=== PATIENT | female | born 1950 | race Caucasian/White ===

== ENCOUNTER → 2016-11-30 | Outpatient (CLI) | payer MEDICARE, OTHER ==
[2016-11-30 09:14] LABS: CH 28.9; CHCM 31.8; HCT 41.5 % (34.0-46.0); HDW 2.12; HGB 13.3 gm/dL (11.4-16.0); MCH 29.3 pg (25.0-35.0); MCHC 32.1 g/dL (31.0-37.0); MCV 91.4 fL (80.0-100.0); Mean Platelet Volume 6.7; RBC 4.54 m/uL (3.80-5.40); RDW 13.3 % (11.5-15.5); WBC 3.8 k/uL (3.8-10.6)
[2016-11-30 09:33] LABS: ALT 23 U/L (9-52); AST 19 U/L (14-36); Alkaline Phosphatase 65 U/L (38-126); Anion Gap 13 mmol/L; Blood Urea Nitrogen 14 mg/dL (7-17); Calcium 10.1 mg/dL (8.4-10.2); Carbon Dioxide 24 mmol/L (22-30); Chloride 106 mmol/L (98-107); Cholesterol 278 mg/dL (<200); Glucose 89 mg/dL (74-99); HDL Cholesterol 89 mg/dL (40-60); Non-African American GFR(MDRD) >60 (>60 ml/min/1.73 sqM); Potassium 5.5 mmol/L (3.5-5.1); Sodium 143 mmol/L (137-145); Total Bilirubin 0.8 mg/dL (0.2-1.3); Total Protein 7.6 g/dL (6.3-8.2); Triglycerides 67 mg/dL (<150)
[2016-11-30 10:09] LABS: Appearance,Urine Cloudy (Clear); Bacteria,Urine Few /hpf; Bilirubin,Urine Negative (Negative); Glucose,Urine (UA) Negative (Negative); Ketones,Urine Trace (Negative); Leukocyte Esterase,Urine Large (Negative); Mucus,Urine Occasional /hpf; Nitrite,Urine Negative (Negative); PH, Urine 5.5 (5.0-8.0); Particle Count 12738; Protein,Urine Trace (Negative); RBC,Urine 16 /hpf (0-5); Specific Gravity,Urine 1.013 (1.001-1.035); Squamous Epithelial Cell,Urine 4 /hpf (0-4); UA Billing (MACRO vs. MICRO) MICRO; Urobilinogen,Urine <2.0 mg/dL (<2.0); WBC,Urine >182 /hpf (0-5)
== END ==
LOC: LABWHC1 08:34
PROVIDERS: ATTEND Internal Medicine
DX: E78.5 Hyperlipidemia, unspecified (principal); E55.9 Vitamin D deficiency, unspecified; K57.30 Diverticulosis of large intestine without perforation or abscess without bleeding
CPT/HCPCS: 36415; 80053; 80061; 81001; 82306; 84443; 85027

== ENCOUNTER → 2017-01-20 | Outpatient (CLI) | payer MEDICARE, OTHER ==
--- NOTE | 2017-01-20 20:28 | BD ---
EXAMINATION TYPE: MG DEXA axial skeleton. DATE OF EXAM: 01/20/2017 1:02 PM COMPARISON: NONE CLINICAL HISTORY: 66-year-old female postmenopausal screening Height: 62 Weight: 176.3 FRAX RISK QUESTIONS: Alcohol (3 or more units per day): NO Family History (Parent hip fracture): YES - MOTHER Glucocorticoids (More than 3mos): NO (Ex: prednisone, prednisolone, methylprednisolone, dexamethasone, and hydrocortisone). History of Fracture in Adulthood: YES Secondary Osteoporosis: 1. Type 1 Diabetes: NO 2. Hyperthyroidism: NO 3. Menopause before 45: 4. Malnutrition: NO 5. Chronic liver disease: NO Rheumatoid Arthritis: NO Current Tobacco Use: NO RISK FACTORS HISTORY OF: Hip Fracture (Right/Left): NO Spine Fracture: NO History of Wrist Fracture: NO Surgery to Spine/Hip(right/left)/Wrist (right/left): NO Family History of Osteoporosis: NO Active: YES Diet low in dairy products/other sources of calcium: YES Postmenopausal woman: 2002 Take estrogen and/or progesterone medications: YES Lost more than 2 inches in height since high school: YES Frequent falls: NO Poor Health: NO Adrenal Insufficiency: NO MEDICATIONS: VAGIFEM, FLUOXITINE Additional History: EXAM MEASUREMENTS: Bone mineral densitometry was performed using the [employer] System. Bone mineral density as measured about the Lumbar spine is: ----- L1-L4(G/cm2): 1.405 T Score Values are as follows: ----- L2: 3.5 ----- L3: 1.1 ----- L4: 1.1 ----- L1-L4: 1.9 Bone mineral density has: INCREASED 11.6 % since study of: 04.29.2009 Bone mineral density about the R hip (g/cm2): 0.869 Bone mineral density about the L hip (g/cm2): 0.786 T Score values are as follows: -----R Neck: -1.2 -----L Neck: -1.8 -----R Intertrochanter: -0.5 -----L Intertrochanter: -1.5 Bone mineral density has: DECREASED -7.1 % since study of: 04.29.2009 IMPRESSION: Osteopenia (T Score between -2.5 and -1) as noted by T score values in the hips. There is slightly increased risk of fracture and the patient may be considered for treatment. Re-Screen 2-5 years. NOTE: T-SCORE=SD OF THE YOUNG ADULT MEAN.
--- NOTE | 2017-01-24 09:47 | MM ---
Reason for exam: screening (asymptomatic). Last mammogram was performed 1 year and 2 months ago. History: Patient is postmenopausal. Took hormonal contraceptives for 1 year. Took estrogen for 2 years beginning at age 51. Taking progesterone beginning at age 64. Physical Findings: A clinical breast exam by your physician is recommended on an annual basis and results should be correlated with mammographic findings. MG 3D Screening Mammo W/Cad Bilateral CC and MLO view(s) were taken. Prior study comparison: November 28, 2015, bilateral MG 3d screening mammo w/cad. November 19, 2014, bilateral MG screening mammo w CAD. The breast tissue is heterogeneously dense. This may lower the sensitivity of mammography. There is chronic nodularity in the left breast. There is no dominant lesion. No significant changes when compared with prior studies. ASSESSMENT: Benign, BI-RAD 2 RECOMMENDATION: Routine screening mammogram of both breasts in 1 year.
== END | disposition home or self-care (01) ==
LOC: RADBDWWP 12:59
PROVIDERS: ATTEND Obstetrics & Gynecology
DX: Z12.31 Encounter for screening mammogram for malignant neoplasm of breast (principal); M85.851 Other specified disorders of bone density and structure, right thigh; M85.852 Other specified disorders of bone density and structure, left thigh; Z88.1 Allergy status to other antibiotic agents; Z88.0 Allergy status to penicillin; Z78.0 Asymptomatic menopausal state
CPT/HCPCS: 77080; 77063; G0202

== ENCOUNTER → 2017-08-03 | Outpatient (CLI) | payer MEDICARE, OTHER ==
[2017-08-03 08:11] LABS: ALT 36 U/L (9-52); AST 19 U/L (14-36); Alkaline Phosphatase 63 U/L (38-126); Anion Gap 8 mmol/L; Blood Urea Nitrogen 15 mg/dL (7-17); Calcium 9.4 mg/dL (8.4-10.2); Carbon Dioxide 26 mmol/L (22-30); Chloride 108 mmol/L (98-107); Cholesterol 232 mg/dL (<200); Glucose 82 mg/dL (74-99); HDL Cholesterol 80 mg/dL (40-60); Non-African American GFR(MDRD) >60 (>60 ml/min/1.73 sqM); Potassium 4.7 mmol/L (3.5-5.1); Sodium 142 mmol/L (137-145); Total Bilirubin 0.4 mg/dL (0.2-1.3)
== END | disposition home or self-care (01) ==
LOC: LABWHC1 07:21
PROVIDERS: ATTEND Internal Medicine
DX: E78.5 Hyperlipidemia, unspecified (principal)
CPT/HCPCS: 36415; 80053; 80061

== ENCOUNTER → 2017-12-20 | Outpatient (CLI) | payer MEDICARE ==
[2017-12-20 08:20] LABS: HCT 40.1 % (34.0-46.0); HGB 12.5 gm/dL (11.4-16.0); MCH 27.3 pg (25.0-35.0); MCHC 31.1 g/dL (31.0-37.0); MCV 87.7 fL (80.0-100.0); Mean Platelet Volume 7.6; Platelet Count 330 k/uL (150-450); RBC 4.57 m/uL (3.80-5.40); RDW 12.9 % (11.5-15.5); WBC 4.2 k/uL (3.8-10.6)
[2017-12-20 08:24] LABS: Appearance,Urine Cloudy (Clear); Bacteria,Urine Few /hpf; Bilirubin,Urine Negative (Negative); Blood,Urine Negative (Negative); Color,Urine Light Yellow; Glucose,Urine (UA) Negative (Negative); Ketones,Urine Negative (Negative); Leukocyte Esterase,Urine Large (Negative); Nitrite,Urine Negative (Negative); Protein,Urine Negative (Negative); RBC,Urine 6 /hpf (0-5); Squamous Epithelial Cell,Urine 7 /hpf (0-4); Urobilinogen,Urine <2.0 mg/dL (<2.0); WBC,Urine 117 /hpf (0-5)
[2017-12-20 08:35] LABS: ALT 29 U/L (9-52); AST 19 U/L (14-36); Albumin 4.4 g/dL (3.5-5.0); Alkaline Phosphatase 64 U/L (38-126); Anion Gap 13 mmol/L; Blood Urea Nitrogen 21 mg/dL (7-17); Calcium 9.9 mg/dL (8.4-10.2); Carbon Dioxide 26 mmol/L (22-30); Chloride 104 mmol/L (98-107); Cholesterol 222 mg/dL (<200); Glucose 88 mg/dL (74-99); HDL Cholesterol 67 mg/dL (40-60); LDL Cholesterol,Calculated 138 mg/dL (0-99); Sodium 143 mmol/L (137-145); Total Bilirubin 0.3 mg/dL (0.2-1.3); Triglycerides 87 mg/dL (<150)
== END | disposition home or self-care (01) ==
LOC: LABWHC1 07:38
PROVIDERS: ATTEND Internal Medicine
DX: Z00.00 Encounter for general adult medical examination without abnormal findings (principal); E78.5 Hyperlipidemia, unspecified
CPT/HCPCS: 36415; 80053; 80061; 81001; 84443; 85027

== ENCOUNTER → 2018-04-06 | Outpatient (CLI) | payer MEDICARE ==
--- NOTE | 2018-04-07 11:06 | MM ---
Reason for exam: screening (asymptomatic). Last mammogram was performed 1 year and 2 months ago. History: Patient is postmenopausal. Took hormonal contraceptives for 1 year. Took estrogen for 2 years beginning at age 51. Taking progesterone beginning at age 64. Physical Findings: A clinical breast exam by your physician is recommended on an annual basis and results should be correlated with mammographic findings. MG 3D Screening Mammo W/Cad Bilateral CC and MLO view(s) were taken. Prior study comparison: January 20, 2017, bilateral MG 3d screening mammo w/cad. November 28, 2015, bilateral MG 3d screening mammo w/cad. The breast tissue is heterogeneously dense. This may lower the sensitivity of mammography. There is chronic nodularity bilaterally. No significant changes when compared with prior studies. ASSESSMENT: Benign, BI-RAD 2 RECOMMENDATION: Routine screening mammogram of both breasts in 1 year.
== END | disposition home or self-care (01) ==
LOC: RADMAMWWP 08:19
PROVIDERS: ATTEND Obstetrics & Gynecology
DX: Z12.31 Encounter for screening mammogram for malignant neoplasm of breast (principal)
CPT/HCPCS: 77063; 77067

== ENCOUNTER → 2019-03-30 | Outpatient (CLI) | payer MEDICARE ==
[2019-03-30 07:41] LABS: HCT 39.7 % (34.0-46.0); HGB 12.3 gm/dL (11.4-16.0); MCHC 30.9 g/dL (31.0-37.0); MCV 90.7 fL (80.0-100.0); Mean Platelet Volume 7.4; Platelet Count 375 k/uL (150-450); RBC 4.38 m/uL (3.80-5.40); WBC 4.6 k/uL (3.8-10.6)
[2019-03-30 10:50] LABS: African American GFR (CKD) 103.2 (60.0-200.0); Albumin 4.6 g/dL (3.80-4.90); Albumin/Globulin Ratio 2.3 (1.60-3.17); Anion Gap 6.9 mmol/L (4.00-12.00); BUN/Creat Ratio 25.71 Ratio (12.00-20.00); Calcium 9.5 mg/dL (8.7-10.3); Carbon Dioxide 27.1 mmol/L (21.6-31.8); LDL Cholesterol,Calculated 151.6 mg/dL (0.0-131.0); Total Bilirubin 0.6 mg/dL (0.2-1.2); Total Protein 6.6 g/dL (6.2-8.2); VLDL Calculation 12.4 mg/dL (5.00-40.00)
== END | disposition home or self-care (01) ==
LOC: LABWHC1 07:04
PROVIDERS: ATTEND Internal Medicine
DX: E55.9 Vitamin D deficiency, unspecified (principal); K57.30 Diverticulosis of large intestine without perforation or abscess without bleeding; E78.5 Hyperlipidemia, unspecified
CPT/HCPCS: 36415; 80053; 80061; 82306; 84443; 85027

== ENCOUNTER → 2019-05-14 | Outpatient (CLI) | payer MEDICARE ==
--- NOTE | 2019-05-16 09:56 | MM ---
Reason for exam: screening (asymptomatic). Last mammogram was performed 1 year and 1 month ago. History: Patient is postmenopausal. Took hormonal contraceptives for 1 year. Took estrogen for 2 years beginning at age 51. Took progesterone beginning at age 64. Physical Findings: A clinical breast exam by your physician is recommended on an annual basis and results should be correlated with mammographic findings. MG 3D Screening Mammo W/Cad Bilateral CC and MLO view(s) were taken. Prior study comparison: April 06, 2018, bilateral MG 3d screening mammo w/cad. January 20, 2017, bilateral MG 3d screening mammo w/cad. Asymmetric nodular density upper outer left breast 6.6cm from nipple. This finding is changed when compared with previous exams. ASSESSMENT: Incomplete: need additional imaging evaluation, BI-RAD 0 RECOMMENDATION: Special view mammogram and ultrasound of the left breast. [facility] will attempt to contact patient to return for supplemental views and ultrasound.
== END | disposition home or self-care (01) ==
LOC: RADMAMWWP 07:25
PROVIDERS: ATTEND Obstetrics & Gynecology
DX: Z12.31 Encounter for screening mammogram for malignant neoplasm of breast (principal)
CPT/HCPCS: 77063; 77067

== ENCOUNTER → 2019-05-17 | Outpatient (CLI) | payer MEDICARE ==
--- NOTE | 2019-05-18 08:50 | MM ---
Reason for exam: additional evaluation requested from abnormal screening. Last mammogram was performed less than 1 month ago. History: Patient is postmenopausal. Took hormonal contraceptives for 1 year. Took estrogen for 2 years beginning at age 51. Took progesterone beginning at age 64. Physical Findings: Nurse did not find any significant physical abnormalities on exam. MG 3D Work Up W/Cad LT Spot compression CC, spot compression MLO, and LM view(s) were taken of the left breast. Prior study comparison: May 14, 2019, bilateral MG 3d screening mammo w/cad. April 06, 2018, bilateral MG 3d screening mammo w/cad. There are scattered fibroglandular densities. There is no discrete abnormality on compression. These results were verbally communicated with the patient and result sheet given to the patient on 05/17/19. ASSESSMENT: Probably benign, BI-RAD 3 RECOMMENDATION: Follow-up diagnostic mammogram of the left breast in 6 months.
--- NOTE | 2019-05-18 08:52 | USB ---
History: Patient is postmenopausal. Took hormonal contraceptives for 1 year. Took estrogen for 2 years beginning at age 51. Took progesterone beginning at age 64. US Breast Workup Limited LT Left limited breast ultrasound including focal area of concern, retroareolar and axilla demonstrates no cystic or solid lesion seen. These results were verbally communicated with the patient and result sheet given to the patient on 05/17/19. ASSESSMENT: Negative, BI-RAD 1 RECOMMENDATION: Follow-up diagnostic mammogram of the left breast in 6 months.
== END | disposition home or self-care (01) ==
LOC: RADMAMWWP 08:08
PROVIDERS: ATTEND Obstetrics & Gynecology
DX: R92.8 Other abnormal and inconclusive findings on diagnostic imaging of breast (principal)
CPT/HCPCS: 77065; 76642; G0279; 77061

== ENCOUNTER → 2019-12-13 | Outpatient (CLI) | payer MEDICARE ==
--- NOTE | 2019-12-13 08:16 | MM ---
Reason for exam: follow-up at short interval from prior study. Last mammogram was performed 7 months ago. History: Patient is postmenopausal. Took hormonal contraceptives for 1 year. Took estrogen for 2 years beginning at age 51. Took progesterone beginning at age 64. Physical Findings: Nurse did not find any significant physical abnormalities on exam. MG 3D Diag Mammo W/Cad LT CC and MLO view(s) were taken of the left breast. Prior study comparison: May 17, 2019, left breast MG 3d work up w/cad LT. May 14, 2019, bilateral MG 3d screening mammo w/cad. The breast tissue is heterogeneously dense. This may lower the sensitivity of mammography. There are benign appearing round calcifications in the left breast. Asymmetric breast tissue left upper breast, stable. There is no discrete abnormality. These results were verbally communicated with the patient and result sheet given to the patient on 12/13/19. ASSESSMENT: Benign, BI-RAD 2 RECOMMENDATION: Return to routine screening mammogram schedule for both breasts. Back on schedule.
== END | disposition home or self-care (01) ==
LOC: RADMAMWWP 07:22
PROVIDERS: ATTEND Obstetrics & Gynecology
DX: R92.8 Other abnormal and inconclusive findings on diagnostic imaging of breast (principal)
CPT/HCPCS: 77061; 77065

== ENCOUNTER → 2020-04-21 | Outpatient (CLI) | payer MEDICARE ==
[2020-04-21 07:40] LABS: HCT 38.8 % (34.0-46.0); HGB 12.3 gm/dL (11.4-16.0); MCH 28.4 pg (25.0-35.0); MCHC 31.7 g/dL (31.0-37.0); MCV 89.4 fL (80.0-100.0); Mean Platelet Volume 7.1; Platelet Count 325 k/uL (150-450); RBC 4.34 m/uL (3.80-5.40); RDW 13.5 % (11.5-15.5); WBC 4.8 k/uL (3.8-10.6)
[2020-04-21 11:36] LABS: Appearance,Urine Turbid (Clear); Bilirubin,Urine Negative (Negative); Blood,Urine Small (Negative); Color,Urine Yellow; Glucose,Urine (UA) Negative (Negative); Ketones,Urine Negative (Negative); Leukocyte Esterase,Urine Large (Negative); Mucus,Urine Occasional /hpf; Nitrite,Urine Negative (Negative); PH, Urine 5.5 (5.0-8.0); Protein,Urine Trace (Negative); RBC,Urine 13 /hpf (0-5); Specific Gravity,Urine 1.024 (1.001-1.035); Squamous Epithelial Cell,Urine 8 /hpf (0-4); Urobilinogen,Urine <2.0 mg/dL (<2.0); WBC,Urine >182 /hpf (0-5)
[2020-04-21 12:31] LABS: African American GFR (CKD) 86.6 (60.0-200.0); Albumin 4.4 g/dL (3.80-4.90); Anion Gap 9.6 mmol/L (4.00-12.00); BUN/Creat Ratio 27.5 Ratio (12.00-20.00); Calcium 9.6 mg/dL (8.7-10.3); Carbon Dioxide 22.4 mmol/L (21.6-31.8); Chol/HDL Ratio 3.12; Globulin 2.2 g/dL (1.6-3.3); LDL Cholesterol,Calculated 149.2 mg/dL (0.0-131.0); Non-African American GFR(CKD) 74.7 (60.0-200.0); Potassium 4.2 mmol/L (3.5-5.5); Total Bilirubin 0.5 mg/dL (0.3-1.2); Total Protein 6.6 g/dL (6.2-8.2); VLDL Calculation 13.8 mg/dL (5.00-40.00)
== END ==
LOC: LABWHC1 06:48
PROVIDERS: ATTEND Internal Medicine
DX: Z00.00 Encounter for general adult medical examination without abnormal findings (principal); E78.5 Hyperlipidemia, unspecified
CPT/HCPCS: 36415; 80053; 80061; 81001; 84443; 85027

== ENCOUNTER → 2020-09-29 | Outpatient (CLI) | payer MEDICARE ==
--- NOTE | 2020-09-29 13:22 | BD ---
EXAMINATION TYPE: Axial Bone Density DATE OF EXAM: 09/29/2020 COMPARISON: 01/20/2017 CLINICAL HISTORY: 70-year-old female postmenopausal screening Height: 5 FT 2 IN Weight: 178 FRAX RISK QUESTIONS: Alcohol (3 or more units per day): NO Family History (Parent hip fracture): YES Glucocorticoids (More than 3mos): NO (Ex: prednisone, prednisolone, methylprednisolone, dexamethasone, and hydrocortisone). History of Fracture in Adulthood: YES Secondary Osteoporosis: 1. Type 1 Diabetes: NO 2. Hyperthyroidism: NO 3. Menopause before 45: NO 4. Malnutrition: NO 5. Chronic liver disease: NO Rheumatoid Arthritis: UNSURE Current Tobacco Use: NO RISK FACTORS HISTORY OF: Family History of Osteoporosis: NO Active: MODERATE Diet low in dairy products/other sources of calcium: NO Postmenopausal woman: TOTAL HYST AGE 51 Take estrogen and/or progesterone medications: TOOK HRT 1 YEAR AFTER HYST USING VAGINAL CREAM NOW Lost more than 2 inches in height since high school: YES MEDICATIONS: Additional Medications: VAGIFEM, STATIN ,PROZAC Additional History: EXAM MEASUREMENTS: Bone mineral densitometry was performed using the [employer] System. Bone mineral density as measured about the Lumbar spine is: ----- L1-L4(G/cm2): 1.197 T Score Values are as follows: ----- L2: 0.7 ----- L3: -0.3 ----- L4: 0.9 ----- L1-L4: 0.1 Bone mineral density has: DECREASED -12.0 % since study of: 2016 Bone mineral density about the R hip (g/cm2): 0.843 Bone mineral density about the L hip (g/cm2): 0.787 T Score values are as follows: -----R Neck: -1.4 -----L Neck: -1.8 -----R Total: -0.7 -----L Total: -1.3 Bone mineral density has: DECREASED -4.4 % since study of: 2016 IMPRESSION: Osteopenia (T Score between -2.5 and -1). There is slightly increased risk of fracture and the patient may be considered for treatment. Re-Screen 2-5 years. NOTE: T-SCORE=SD OF THE YOUNG ADULT MEAN.
--- NOTE | 2020-10-01 14:44 | MM ---
Reason for exam: screening (asymptomatic). Last mammogram was performed 10 months ago. History: Patient is postmenopausal. Took hormonal contraceptives for 1 year. Took estrogen for 2 years beginning at age 51. Took progesterone beginning at age 64. Physical Findings: A clinical breast exam by your physician is recommended on an annual basis and results should be correlated with mammographic findings. MG 3D Screening Mammo W/Cad Bilateral CC and MLO view(s) were taken. Prior study comparison: December 13, 2019, left breast MG 3d diag mammo w/cad LT. May 17, 2019, left breast MG 3d work up w/cad LT. April 06, 2018, bilateral MG 3d screening mammo w/cad. January 20, 2017, bilateral MG 3d screening mammo w/cad. The breast tissue is heterogeneously dense. This may lower the sensitivity of mammography. No significant changes when compared with prior studies. ASSESSMENT: Negative, BI-RAD 1 RECOMMENDATION: Routine screening mammogram of both breasts in 1 year.
== END | disposition home or self-care (01) ==
LOC: RADMAMWWP 09:34
PROVIDERS: ATTEND Obstetrics & Gynecology
DX: Z12.31 Encounter for screening mammogram for malignant neoplasm of breast (principal); M85.80 Other specified disorders of bone density and structure, unspecified site; Z78.0 Asymptomatic menopausal state
CPT/HCPCS: 77063; 77067; 77080

== ENCOUNTER → 2020-12-22 | Outpatient (CLI) | payer MEDICARE ==
[2020-12-22 10:59] LABS: African American GFR (CKD) 101.7 (60.0-200.0); Albumin 4.8 g/dL (3.80-4.90); Albumin/Globulin Ratio 2.29 (1.60-3.17); Anion Gap 8.7 mmol/L (4.00-12.00); Calcium 9.7 mg/dL (8.7-10.3); Carbon Dioxide 26.3 mmol/L (21.6-31.8); Globulin 2.1 g/dL (1.6-3.3); Non-African American GFR(CKD) 87.8 (60.0-200.0); Potassium 4.7 mmol/L (3.5-5.5); Total Bilirubin 0.7 mg/dL (0.3-1.2); Total Protein 6.9 g/dL (6.2-8.2)
[2020-12-22 11:00] LABS: Chol/HDL Ratio 2.26; LDL Cholesterol,Calculated 98.8 mg/dL (0.0-131.0); VLDL Calculation 12.2 mg/dL (5.00-40.00)
== END | disposition home or self-care (01) ==
LOC: LABWHC1 07:10
PROVIDERS: ATTEND Internal Medicine
DX: E78.2 Mixed hyperlipidemia (principal)
CPT/HCPCS: 36415; 80053; 80061

== ENCOUNTER → 2021-06-30 | Outpatient (CLI) | payer MEDICARE ==
[2021-06-30 11:29] LABS: Basophils # (A) 0.06 X 10*3/uL (0.00-0.10); Basophils % (A) 1.3 %; Eosinophils # (A) 0.14 X 10*3/uL (0.04-0.35); HCT 41.7 % (37.2-46.3); HGB 12.9 g/dL (12.0-15.0); Lymphocytes # (A) 1.49 X 10*3/uL (0.90-5.00); Lymphocytes % (A) 32.1 %; MCHC 30.9 g/dL (32.0-37.0); MCV 90.7 fL (80.0-97.0); Mean Platelet Volume 10.1 fL (9.5-12.2); Monocytes # (A) 0.47 X 10*3/uL (0.20-1.00); Monocytes % (A) 10.1 %; Neutrophils # (A) 2.47 X 10*3/uL (1.80-7.70); Neutrophils % (A) 53.3 %; Platelet Count 383 X 10*3/uL (140-440); RDW 14.6 % (11.5-14.5); WBC 4.64 X 10*3/uL (4.50-10.00)
[2021-06-30 13:52] LABS: African American GFR (CKD) 99.7 (60.0-200.0); Albumin 4.8 g/dL (3.8-4.9); Albumin/Globulin Ratio 2.14 (1.60-3.17); Anion Gap 14.4 mmol/L (4.00-12.00); BUN/Creat Ratio 23.31 Ratio (12.00-20.00); Blood Urea Nitrogen 16.5 mg/dL (9.0-27.0); Calcium 9.7 mg/dL (8.7-10.3); Carbon Dioxide 22.5 mmol/L (21.6-31.8); Chol/HDL Ratio 1.96 Ratio; Globulin 2.2 g/dL (1.6-3.3); HDL Cholesterol 91.1 mg/dL (40.00-60.00); LDL Cholesterol,Calculated 72.5 mg/dL (0.0-131.0); Total Bilirubin 0.4 mg/dL (0.30-1.20); Triglycerides 76.8 mg/dL (0.00-149.00); VLDL Calculation 15.36 mg/dL (5.00-40.00)
== END | disposition home or self-care (01) ==
LOC: LABWHC1 07:02
PROVIDERS: ATTEND Internal Medicine
DX: E78.2 Mixed hyperlipidemia (principal); N95.2 Postmenopausal atrophic vaginitis; F41.9 Anxiety disorder, unspecified
CPT/HCPCS: 36415; 80053; 80061; 83036; 84443; 85025

== ENCOUNTER 2021-10-19 06:35 | Day surgery (SDC) | payer MEDICARE ==
[2021-10-15 15:13] VITALS: BMI 32.5
[~2021-10-19 06:35] MED LIST: ACETAMINOPHEN TAB 500 MG TAB PO PRN; DEXAMETHASONE SOD PHOSPHATE 4 MG/ML 1 ML VIAL IV ONE; HEPARIN SODIUM,PORCINE/PF 5,000 UNIT/0.5 ML SYRINGE SQ PRN; HYDROmorphone 0.5 MG/0.5 ML SYRINGE IVP PRN; LACTATED RINGERS 1,000 ML IV SCH; LIDOCAINE 1% (10MG/ML) FOR IV START INTRADERMA PRN; ONDANSETRON 4 MG/2 ML VIAL IVP ONE; Pre Op ABX Message 1 EACH MISC MISCELLANE ONE
[2021-10-19 07:11] VITALS: RESP 16; TEMP 97.1
[2021-10-19] MEDS ORDERED: CLINDAMYCIN 600 MG in DEXTROSE 5% IN WATER 50 ML IVPB STA ×2 (07:37)
[2021-10-19] MEDS ORDERED: LIDOCAINE 1% INJ 10MG/ML (20 ML MDV) ONE (07:45)
[2021-10-19] MEDS ORDERED: PROPOFOL 10 MG/ML 20 ML VIAL IV ONE (07:45)
[2021-10-19] MEDS ORDERED: MIDAZOLAM 2 MG/2 ML VIAL ONE (07:45)
[2021-10-19] MEDS ORDERED: fentaNYL (PF) 50 MCG/ML 2 ML AMP ONE (07:45)
[2021-10-19] MEDS ORDERED: BUPIVACAIN-EPI 0.25%-1:200,000 30 ML VIAL SQ ONE ×2 (08:06)
[2021-10-19 08:53] VITALS: BP 111/73; PULSE 61
--- NOTE | 2021-10-19 09:12 | P.OP ---
Date of Procedure: 10/19/21 Procedure(s) Performed: PREOPERATIVE DIAGNOSIS: Squamous cell skin cancer anterior neck POSTOPERATIVE DIAGNOSIS: Same PROCEDURE: Wide excision squamous cell skin cancer anterior neck with intermediate closure SURGEON: Maxx EBL: 2 mL ANESTHESIA: Local plus sedation COMPLICATIONS: None OPERATIVE PROCEDURE: Patient placed in the operative table in the supine position. The patient's anterior neck was prepped and draped sterilely. The patient had a 7 mm scar present from recent biopsy site. This was present just superior to the sternal notch. Margins of 5-6 mm was marked at the inferior and superior margin. This was doubled for the lateral margins. Elliptical incision was then made using the scalpel after localizing with Marcaine. The skin and subcutaneous superficial fat was excised. This was sent to pathology. Flaps were raised using electrocautery superiorly and inferiorly. Subcutaneous 4-0 Vicryl sutures were then used to reapproximate the deep dermis. The skin was then reapproximated using interrupted 5-0 Monocryl subcuticular sutures. Skin glue was then applied. DISPOSITION: Stable to recovery room
== END 2021-10-19 09:17 | disposition home or self-care (01) ==
LOC: OR 06:35
PROVIDERS: ATTEND Surgery
DX: C44.42 Squamous cell carcinoma of skin of scalp and neck (principal)
CPT/HCPCS: 11624; 88305; J2250; J1100; J2405; J2001; J3010; J2704; J1644

== ENCOUNTER → 2021-12-07 | Outpatient (CLI) | payer MEDICARE ==
--- NOTE | 2021-12-09 08:54 | MM ---
Reason for exam: screening (asymptomatic). Last mammogram was performed 1 year and 2 months ago. History: Patient is postmenopausal and history of other cancer. Took hormonal contraceptives for 1 year. Took estrogen for 2 years beginning at age 51. Took progesterone beginning at age 64. Physical Findings: A clinical breast exam by your physician is recommended on an annual basis and results should be correlated with mammographic findings. MG 3D Screening Mammo W/Cad Bilateral CC and MLO view(s) were taken. Prior study comparison: September 29, 2020, bilateral MG 3d screening mammo w/cad. December 13, 2019, left breast MG 3d diag mammo w/cad LT. The breast tissue is heterogeneously dense. This may lower the sensitivity of mammography. There is no discrete abnormality. No significant changes when compared with prior studies. ASSESSMENT: Negative, BI-RAD 1 RECOMMENDATION: Routine screening mammogram of both breasts in 1 year.
== END | disposition home or self-care (01) ==
LOC: RADMAMWWP 09:52
PROVIDERS: ATTEND Obstetrics & Gynecology
DX: Z12.31 Encounter for screening mammogram for malignant neoplasm of breast (principal); Z78.0 Asymptomatic menopausal state
CPT/HCPCS: 77063; 77067

== ENCOUNTER → 2022-01-04 | Outpatient (CLI) | payer MEDICARE ==
[2022-01-04 09:14] LABS: Appearance,Urine Cloudy (Clear); Bacteria,Urine Occasional /hpf; Bilirubin,Urine Negative (Negative); Blood,Urine Trace (Negative); Color,Urine Yellow; Glucose,Urine (UA) Negative (Negative); Ketones,Urine Negative (Negative); Leukocyte Esterase,Urine Large (Negative); Mucus,Urine Rare /hpf; Nitrite,Urine Negative (Negative); Protein,Urine Negative (Negative); RBC,Urine 9 /hpf (0-5); Specific Gravity,Urine 1.018 (1.001-1.035); Squamous Epithelial Cell,Urine 10 /hpf (0-4); Urobilinogen,Urine <2.0 mg/dL (<2.0); WBC,Urine >182 /hpf (0-5)
[2022-01-04 11:10] LABS: Basophils # (A) 0.06 X 10*3/uL (0.00-0.10); Basophils % (A) 1.3 %; Eosinophils # (A) 0.18 X 10*3/uL (0.04-0.35); Eosinophils % (A) 3.9 %; HCT 39.9 % (37.2-46.3); HGB 12.3 g/dL (12.0-15.0); Immature Grans, Automated 0.2 %; Lymphocytes # (A) 1.48 X 10*3/uL (0.90-5.00); Lymphocytes % (A) 31.7 %; MCH 28.1 pg (27.0-32.0); MCHC 30.8 g/dL (32.0-37.0); MCV 91.3 fL (80.0-97.0); Mean Platelet Volume 9.8 fL (9.5-12.2); Monocytes # (A) 0.39 X 10*3/uL (0.20-1.00); Monocytes % (A) 8.4 %; NRBC Per 100 WBC 0 /100 WBCS (0.0-0.0); Neutrophils # (A) 2.55 X 10*3/uL (1.80-7.70); Neutrophils % (A) 54.5 %; Platelet Count 360 X 10*3/uL (140-440); RBC 4.37 X 10*6/uL (4.10-5.20); RDW 13.3 % (11.5-14.5); WBC 4.67 X 10*3/uL (4.50-10.00)
[2022-01-04 11:30] LABS: ALT 18 U/L (8-44); AST 15 U/L (13-35); African American GFR (CKD) 74.6 (60.0-200.0); Albumin 4.6 g/dL (3.8-4.9); Albumin/Globulin Ratio 2.19 (1.60-3.17); Alkaline Phosphatase 71 U/L (41-126); BUN/Creat Ratio 21.56 Ratio (12.00-20.00); Blood Urea Nitrogen 19.4 mg/dL (9.0-27.0); Carbon Dioxide 22.5 mmol/L (20.0-27.5); Chloride 105 mmol/L (96-109); Chol/HDL Ratio 2.33 Ratio; Globulin 2.1 g/dL (1.6-3.3); Glucose 90 mg/dL (70-110); Non-African American GFR(CKD) 64.3 (60.0-200.0); Potassium 5.3 mmol/L (3.5-5.5); Sodium 140 mmol/L (135-145); Total Protein 6.7 g/dL (6.2-8.2)
== END | disposition home or self-care (01) ==
LOC: LABWHC1 07:05
PROVIDERS: ATTEND Internal Medicine
DX: Z13.29 Encounter for screening for other suspected endocrine disorder (principal); E78.2 Mixed hyperlipidemia
CPT/HCPCS: 36415; 80053; 80061; 81001; 84443; 85025; 87086

== ENCOUNTER → 2022-08-05 | Outpatient (CLI) | payer MEDICARE ==
[2022-08-05 14:20] LABS: African American GFR (CKD) 85.4 (60.0-200.0); Anion Gap 11.8 mmol/L (10.00-18.00); Blood Urea Nitrogen 18.1 mg/dL (9.0-27.0); Carbon Dioxide 20.2 mmol/L (20.0-27.5); Non-African American GFR(CKD) 73.7 (60.0-200.0); Potassium 4.3 mmol/L (3.5-5.5)
[2022-08-05 14:26] LABS: HCT 39.6 % (37.2-46.3); HGB 12.2 g/dL (12.0-15.0); MCH 28.1 pg (27.0-32.0); MCHC 30.8 g/dL (32.0-37.0); MCV 91.2 fL (80.0-97.0); Mean Platelet Volume 9.8 fL (9.5-12.2); NRBC Per 100 WBC 0 /100 WBCS (0.0-0.0); Platelet Count 339 X 10*3/uL (140-440); RBC 4.34 X 10*6/uL (4.10-5.20); RDW 13.8 % (11.5-14.5); WBC 4.11 X 10*3/uL (4.50-10.00)
== END | disposition home or self-care (01) ==
LOC: LABPAT 07:17
PROVIDERS: ATTEND Internal Medicine Interventional Cardiology
DX: Z01.812 Encounter for preprocedural laboratory examination (principal); R94.39 Abnormal result of other cardiovascular function study
CPT/HCPCS: 36415; 80051; 82565; 84520; 85027

== ENCOUNTER 2022-08-13 09:29 | Day surgery (SDC) | payer MEDICARE ==
[2022-08-11 09:17] VITALS: BMI 32.9
[~2022-08-13 09:29] MED LIST changes: -ACETAMINOPHEN TAB 500 MG TAB PO PRN; +ALPRAZolam 0.25 MG TAB PO PRN; +ALPRAZolam 0.5 MG TAB PO PRN; +ASPIRIN 325 MG TAB PO STA; +ATORVASTATIN 80 MG TAB PO STA; -DEXAMETHASONE SOD PHOSPHATE 4 MG/ML 1 ML VIAL IV ONE; +HEPARIN SODIUM,PORCINE 10,000 UNIT in SODIUM CHLORIDE 0.9% 1,000 ML IRRIGATION PRN; +HEPARIN SODIUM,PORCINE 2,500 UNIT in SODIUM CHLORIDE 0.9% 250 ML IRRIGATION PRN; -HEPARIN SODIUM,PORCINE/PF 5,000 UNIT/0.5 ML SYRINGE SQ PRN; -HYDROmorphone 0.5 MG/0.5 ML SYRINGE IVP PRN; -LACTATED RINGERS 1,000 ML IV SCH; -LIDOCAINE 1% (10MG/ML) FOR IV START INTRADERMA PRN; +NITROGLYCERIN SL TABS 0.4 MG TAB SUBLINGUAL PRN; -ONDANSETRON 4 MG/2 ML VIAL IVP ONE; -Pre Op ABX Message 1 EACH MISC MISCELLANE ONE; +SODIUM CHLORIDE 0.9% 1,000 ML in EMPTY BAG 1 BAG IV SCH
[2022-08-13 09:50] VITALS: RESP 18; TEMP 97
[2022-08-13] MEDS ORDERED: VERAPAMIL 2.5 MG/ML 2 ML AMP ONE (10:02)
[2022-08-13] MEDS ORDERED: fentaNYL (PF) 50 MCG/ML 2 ML AMP ONE (10:02)
[2022-08-13] MEDS ORDERED: HEPARIN SODIUM 1,000 UN/ML (10ML VL) ONE (10:02)
[2022-08-13] MEDS ORDERED: fentaNYL (PF) 50 MCG/ML 2 ML AMP IVP ONE (10:31)
[2022-08-13] MEDS ORDERED: LIDOCAINE 1% INJ 10MG/ML (30 ML VIAL-PF) SQ ONE (10:38)
[2022-08-13] MEDS ORDERED: HEPARIN SODIUM 1,000 UN/ML (10ML VL) IVP ONE (10:45)
[2022-08-13] MEDS ORDERED: IOPAMIDOL-370 125ML BTL INJ ONE (10:50)
[2022-08-13] MEDS ORDERED: RX INFO: IV CONTRAST WAS GIVEN 1 EACH MISC MISCELLANE PRN (10:56)
[2022-08-13] MEDS ORDERED: SODIUM CHLORIDE 0.9% 1,000 ML IV SCH (11:00)
--- NOTE | 2022-08-13 11:03 | P.CARDCATH ---
Date of Procedure: 08/13/22 Description of Procedure: Cardiac Catheterization: The patient is a 72-year-old female with history of hyperlipidemia was found to have an abnormal MPI with EKG changes and reversible defect. Recommendations were made regarding cardiac catheterization, the risks and the complications were discussed with the patient who is in full understanding and agreement. Procedure Description: Patient was brought to laborer salvage in fasting semi-sedated state after receiving Fentanyl and Benadryl achieiving moderate conscious sedated state. Using Xylocaine Anesthesia and Seldinger technique, a 6-Djiboutian sheath was introduced in the right radial artery . Subsequently, selective coronary angiography was performed using a 5-Djiboutian 3.5 bend Philip catheter. Multiple views of the coronary artery including hemiaxial views were obtained. The 5-Djiboutian pigtail catheter was used to cross the aortic valve and LVEDP was calculated. Following that, catheter and sheath were removed. Hemostasis was obtained with deployment of TR band . There was no immediate complication. Patient was returned to room in stable condition. Of note, the patient received a total of 4000 nits of intravenous heparin as well as intra-arterial verapamil. Findings: Left main: This is a large-size vessel, bifurcating LAD and left circumflex, left main has no high-grade stenosis LAD: this is a large-size vessel, reaching to the apex, giving rise to a large obtuse diagonal branch, the LAD and its branches have no evidence of obstructive disease. Left circumflex: This is a large nondominant vessel, giving rise to a large obtuse marginal branch, the left circumflex and its branches had no evidence of obstructive disease. RCA: this is a large dominant vessel, bifurcating into PDA and PLV, the right coronary artery and its branches have no evidence of obstructive disease. Left ventriculogram: Not performed Hemodynamic: There was no gradient across the aortic valve , LVEDP was 8-10 Conclusion: 1. Normal coronary arteries 2. Right dominance 3. Normal LVEDP Recommendations: I see no evidence of significant cardiac obstructive disease. She will continue the aggressive coronary risks modifications. findings and the recommendations were discussed with the patient and the family and they were in full understanding and agreement. Duration of sedation 15 minutes.
[2022-08-13 13:57] VITALS: BP 113/65; PULSE 64
[2022-08-13] MEDS ORDERED: NON FORMULARY DRUG (Rosuvastatin Calcium [Crestor] 5 MG Tablet) PO SCH (21:00)
[2022-08-14] MEDS ORDERED: ASPIRIN 81 MG PO SCH (09:00)
== END 2022-08-13 14:23 | disposition home or self-care (01) ==
LOC: CATHCVL 09:29
PROVIDERS: ATTEND Internal Medicine Interventional Cardiology
DX: R94.39 Abnormal result of other cardiovascular function study (principal); E78.5 Hyperlipidemia, unspecified; Z79.02 Long term (current) use of antithrombotics/antiplatelets; Z79.899 Other long term (current) drug therapy
CPT/HCPCS: 93458; C1769 ×3; C1894; J2001; J3010; J1644; Q9967

== ENCOUNTER 2022-09-07 07:40 | Day surgery (SDC) | payer MEDICARE ==
[2022-09-02 13:00] VITALS: BMI 32.9
[~2022-09-07 07:40] MED LIST changes: -ALPRAZolam 0.25 MG TAB PO PRN; -ALPRAZolam 0.5 MG TAB PO PRN; -ASPIRIN 325 MG TAB PO STA; -ATORVASTATIN 80 MG TAB PO STA; -HEPARIN SODIUM,PORCINE 10,000 UNIT in SODIUM CHLORIDE 0.9% 1,000 ML IRRIGATION PRN; -HEPARIN SODIUM,PORCINE 2,500 UNIT in SODIUM CHLORIDE 0.9% 250 ML IRRIGATION PRN; +LACTATED RINGERS 1,000 ML IV SCH; -NITROGLYCERIN SL TABS 0.4 MG TAB SUBLINGUAL PRN; -SODIUM CHLORIDE 0.9% 1,000 ML in EMPTY BAG 1 BAG IV SCH
[2022-09-07 08:08] VITALS: TEMP 97.1
[2022-09-07] MEDS ORDERED: PROPOFOL 10 MG/ML 20 ML VIAL IV ONE (08:42)
--- NOTE | 2022-09-07 08:59 | P.PCN ---
Date of Procedure: 09/07/22 Procedure(s) Performed: BRIEF HISTORY: Patient is a 72-year-old pleasant white female scheduled for an elective colonoscopy as a part of screening for colon cancer. PROCEDURE PERFORMED: Colonoscopy with snare polypectomy. PREOPERATIVE DIAGNOSIS: Screening for colon cancer. IV sedation per Anesthesia. PROCEDURE: After informed consent was obtained, the patient, was brought into the endoscopy unit. IV sedation was administered by Anesthesia under continuous monitoring. Digital rectal examination was normal. Initially the Olympus CF-160 flexible video colonoscope was then inserted in the rectum, gradually advanced into the cecum without any difficulty. Careful examination was performed as the scope was gradually being withdrawn. Ileocecal valve and the appendiceal orifice were visualized and appeared normal. Prep was excellent. Mucosa of the cecum, appeared normal. In the ascending colon there was a 5 mm polyp that was removed by snare polypectomy. Rest of the ascending colon, transverse colon, descending colon, sigmoid colon, and rectum appeared normal. Scattered sigmoid diverticu losis. Retroflexion was performed in the rectum and no lesions were seen. The patient tolerated the procedure well. IMPRESSION: 5 millimeters ascending colon polyp status post polypectomy Scattered sigmoid diverticulosis RECOMMENDATIONS: Findings of this examination were discussed with the patient as well as a family. She was advised to follow with the biopsy results and have a repeat colonoscopy in 5 years from now based the biopsy
[2022-09-07 09:03] VITALS: RESP 16
[2022-09-07 09:28] VITALS: BP 109/72; PULSE 81
== END 2022-09-07 09:50 | disposition home or self-care (01) ==
LOC: ORWHC2ENDO 07:40
PROVIDERS: ATTEND Internal Medicine Gastroenterology
DX: Z12.11 Encounter for screening for malignant neoplasm of colon (principal); K63.5 Polyp of colon; K57.30 Diverticulosis of large intestine without perforation or abscess without bleeding; E78.5 Hyperlipidemia, unspecified; M19.90 Unspecified osteoarthritis, unspecified site; Z88.0 Allergy status to penicillin; Z88.2 Allergy status to sulfonamides; Z88.7 Allergy status to serum and vaccine; Z87.891 Personal history of nicotine dependence; Z79.02 Long term (current) use of antithrombotics/antiplatelets; Z79.899 Other long term (current) drug therapy
CPT/HCPCS: 88305; 45385; J2704

== ENCOUNTER → 2023-01-18 | Outpatient (CLI) | payer MEDICARE ==
--- NOTE | 2023-01-18 11:13 | BD ---
EXAMINATION TYPE: Axial Bone Density DATE OF EXAM: 01/18/2023 CLINICAL HISTORY: 72 years old Female. ICD-10 CODE: [id number] Height: 61.5 Weight: 182 FRAX RISK QUESTIONS: Alcohol (3 or more units per day): no Family History (Parent hip fracture): yes, mother History of Fracture in Adulthood: yes, left foot at 62 Secondary Osteoporosis: no Rheumatoid Arthritis: no RISK FACTORS HISTORY OF: Family History of Osteoporosis: no Active: yes Diet low in dairy products/other sources of calcium: no Postmenopausal woman: yes, age 51 Lost more than 2 inches in height since high school: yes was 64 Frequent falls: no MEDICATIONS: Additional Medications: yes cholesterol, Prozac, calcium, Vagifem EXAM MEASUREMENTS: Bone mineral densitometry was performed using the [employer] System. Bone mineral density as measured about the Lumbar spine is: ----- L1-L4(G/cm2): 1.192 T Score Values are as follows: ----- L1: -1.0 ----- L2: -0.9 ----- L3: -0.4 ----- L4: 2.2 ----- L1-L4: 0.1 Z Score Values are as follows: ----- L1: 0.2 ----- L2: 0.3 ----- L3: 0.7 ----- L4: 3.4 ----- L1-L4: 1.3 Bone mineral density has: Decreased -0.4% since study of: 09/29/2020 Bone mineral density about the R hip (g/cm2): 0.912 Bone mineral density about the L hip (g/cm2): 0.841 T Score values are as follows: -----R Neck: -1.6 -----L Neck: -1.8 -----R Total: -0.8 -----L Total: -1.3 Z Score values are as follows: -----R Neck: -0.1 -----L Neck: -0.3 -----R Total: 0.5 -----L Total: -0.1 Bone mineral density has: Decreased -1.2% since study of: 09/26/2020 FRAX%s: The graph provided illustrates a 26.2% chance for a major osteoporotic fx and a 9.6% chance f or the hips probability for fx in 10 years time. IMPRESSION: Osteopenia (T Score between -2.5 and -1). There is slightly increased risk of fracture and the patient may be considered for treatment. Re-Screen 2-5 years. NOTE: T-SCORE=SD OF THE YOUNG ADULT MEAN.
== END | disposition home or self-care (01) ==
LOC: RADBDWWP 08:35
PROVIDERS: ATTEND Internal Medicine
DX: M85.851 Other specified disorders of bone density and structure, right thigh (principal)
CPT/HCPCS: 77080

== ENCOUNTER → 2023-01-18 | Outpatient (CLI) | payer MEDICARE ==
[2023-01-18 08:51] VITALS: BP 126/81; PULSE 75; RESP 17; TEMP 97.7
--- NOTE | 2023-01-18 09:48 | P.HPOB ---
History of Present Illness H&P Date: 01/18/23 Chief Complaint: The patient is here for her routine gynecologic exam and ma mmogram. This is a 72-year-old 023 with an LMP of 2001. The patient is here to establish with this office. It has been about 1 year since her last pelvic exam. She is status post DEVON/BSO for benign reasons. She previously saw Dr. Savage for her gynecologic care. She is without gynecologic complaints. She has been using a vaginal estrogen products because of frequent UTIs. Since she st arted that she has really gotten UTIs. She is sexually active. Review of Systems The patient's weight has been stable over the last year. She denies respiratory, cardiac, or G.I. problems. Past Medical History Past Medical History: Cancer, Hearing Disorder / Deafness, Hyperlipidemia, Osteoarthritis (OA), Skin Disorder Additional Past Medical History / Comment(s): Chronic back pain occ. Squamous cell skin cancer (chest wall). Hearing aids. 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 History of Any Multi-Drug Resistant Organisms: None Reported Past Surgical History: Adenoidectomy, Cholecystectomy, Hysterectomy, Tonsillectomy Additional Past Surgical History / Comment(s): Bilateral cataract eye surgeries and eye surgery for hooding. DEVON/BSO in 2001(fibroids). Colonoscopy 2021(next after 5yr). Past Anesthesia/Blood Transfusion Reactions: No Reported Reaction Past Psychological History: Anxiety (She denies current depression.) Additional Psychological History / Comment(s): CLAUSTROPHOBIC, ANXIOUS ABOUT SOMETHING ON HER FACE. Smoking Status: Former smoker Past Alcohol Use History: Occasional (0-3 per week) Additional Past Alcohol Use History / Comment(s): Smoked few years in college, quit 1975 Past Drug Use History: None Reported Additional History: She has been since 1973 and is sexually active. 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 - Past Family History Mother Family Medical History: CVA/TIA Additional Family Medical History / Comment(s): Maternal grandmother had some type of gynecologic cancer. Father Family Medical History: Diabetes Mellitus Additional Family Medical History / Comment(s): Heart disease. Paternal grandmother had gastric cancer. Medications and Allergies Home Medications Medication Instructions Recorded Confirmed Type Calcium Citrate/Vitamin D3 2 each PO DAILY 10/15/21 01/18/23 History [Citracal + D Maximum Caplet] FLUoxetine HCL [PROzac] 40 mg PO HS 10/15/21 01/18/23 History Multivitamins, Thera [Multivitamin 1 tab PO DAILY 10/15/21 01/18/23 History (formulary)] Rosuvastatin Calcium [Crestor] 10 mg PO HS 10/15/21 01/18/23 History estradioL [Yuvafem] 10 mcg VG Q7D 10/15/21 01/18/23 History Allergies Allergy/AdvReac Type Severity Reaction Status Date / Time erythromycin base Allergy Unknown Verified 01/18/23 08:46 [Erythromycin Base] Childhood Penicillins Allergy Rash/Hives Verified 01/18/23 08:46 sulfamethoxazole Allergy Unknown Verified 01/18/23 08:46 [From Bactrim] Childhood Tetracyclines Allergy Unknown Verified 01/18/23 08:46 Childhood trimethoprim [From Bactrim] Allergy Unknown Verified 01/18/23 08:46 Childhood Exam Vital Signs Temp Pulse Resp BP Pulse Ox 01/18/23 08:48 97.7 F 75 17 126/81 97 Intake and Output 01/17/23 01/18/23 01/18/23 22:59 06:59 14:59 Other: Weight 84.368 kg Height 5 feet 2 inches, weight 186 pounds, BMI 34.0. This is a well-developed well-nourished white female who is alert and oriented times 3 in no acute distress. HEENT: Within normal limits. NECK: Supple without mass or thyromegaly. CHEST AND LUNGS: Clear to auscultation. HEART: Regular rate and rhythm. BREASTS: Are without mass or discharge. AXILLARY EXAM: Negative for adenopathy. BACK: Negative for CVA tenderness. ABDOMEN: Soft, nontender, without palpable masses. PELVIC EXAM: External genitalia appears normal with mild atrophy. Vagina appears normal with mild atrophy. There is no evidence of prolapse. Bimanual examination is negative for mass or tenderness. RECTAL EXAM: Rectovaginal exam is negative for mass or tenderness and is negative for occult blood. EXTREMITIES: Nontender. IMPRESSION: 1. 72-year-old menopausal female status post DEVON/BSO for benign reasons, with normal gynecologic exam. 2. History of osteopenia 3. Doing well with vaginal estrogen. She has been using this because of her history of frequent UTIs and vaginal estrogen has decreased the frequency of these. PLAN: 1. Pap smears have been discontinued. 2. Self breast awareness was discussed with the patient. We have also discussed symptoms associated with inflammatory breast cancer. 3. Screening mammogram will be done today. 4. Osteoporosis prevention was discussed. I have stressed the importance of adequate calcium, vitamin D and regular exercise. Recommended amounts of calcium and vitamin D were also discussed. Her last bone density test was done on 09/29/2020 and showed osteopenia. Bone density testing will be done today. 5. Continue Yuvafem vaginal estrogen tablets. Electronic prescription will be sent to [facility] pharmacy at the [facility]. 6. She was advised to return in one year for her annual well woman exam.
--- NOTE | 2023-01-18 13:14 | MM ---
Reason for Exam: Screening (asymptomatic). Last mammogram was performed 1 year(s) and 1 month(s) ago. Patient History: Menarche at age 13. First Full-Term at age 29. Left ovary removed at age 51. Right ovary removed at age 51. Hysterectomy at age 51. Postmenopausal. Patient has history of breast feeding. Estrogen for 2 years from age 51 until age 53. Progesterone, starting at age 64. Patient used Hormonal Contraceptives for 1 year. Risk Values: Julissa 5 year model risk: 2.0%. NCI Lifetime model risk: 5.1%. Prior Study Comparison: 12/13/2019 Left Diagnostic Mammogram, [facility]. 09/29/2020 Bilateral Screening Mammogram, [facility]. 12/07/2021 Bilateral Screening Mammogram, [facility]. Tissue Density: The breast tissue is heterogeneously dense. This may lower the sensitivity of mammography. Findings: Analyzed By CAD. There is no suspicious group of microcalcifications or new suspicious mass in either breast. Stable benign calcifications. Overall Assessment: Benign, BI-RAD 2 Management: Screening Mammogram of both breasts in 1 year. A clinical breast exam by your physician is recommended on an annual basis and results should be correlated with mammographic findings. Electronically signed and approved by: Jaycob Abel M.D. Radiologis
--- NOTE | 2023-01-20 10:36 | P.PN ---
Progress Note - Text Progress Note Date: 01/20/23 OUTPATIENT FOLLOW-UP NOTE TEST(S)/RESULTS: Test results from 01/18/2023 include benign mammogram and bone density test showing osteopenia. METHOD OF NOTIFICATION: The patient was notified by phone on 01/20/2023. PATIENT COMMENTS: DIAGNOSIS: Benign mammogram and osteopenia. DISCUSSION: I have stressed the importance of adequate calcium, vitamin D, and regular exercise. We will plan on repeating the bone density test in 2-3 years. PLAN: As above. She was advised to return in one year for her annual well woman exam.
== END ==
LOC: WWCWWP 08:33
PROVIDERS: ATTEND Obstetrics & Gynecology
DX: Z12.31 Encounter for screening mammogram for malignant neoplasm of breast (principal); E78.5 Hyperlipidemia, unspecified; M19.90 Unspecified osteoarthritis, unspecified site; M85.80 Other specified disorders of bone density and structure, unspecified site; Z78.0 Asymptomatic menopausal state; Z82.3 Family history of stroke; Z82.49 Family history of ischemic heart disease and other diseases of the circulatory system; Z83.3 Family history of diabetes mellitus; Z85.828 Personal history of other malignant neoplasm of skin; Z87.440 Personal history of urinary (tract) infections; Z87.891 Personal history of nicotine dependence; Z88.0 Allergy status to penicillin; Z88.1 Allergy status to other antibiotic agents; Z88.2 Allergy status to sulfonamides; Z90.49 Acquired absence of other specified parts of digestive tract; Z90.710 Acquired absence of both cervix and uterus; Z90.721 Acquired absence of ovaries, unilateral; Z90.722 Acquired absence of ovaries, bilateral; Z88.6 Allergy status to analgesic agent
CPT/HCPCS: 77063; 77067

== ENCOUNTER → 2023-05-28 | Outpatient (CLI) | payer MEDICARE ==
--- NOTE | 2023-06-03 11:16 | MR ---
EXAMINATION TYPE: MR knee RT wo con DATE OF EXAM: 05/28/2023 COMPARISON: Outside radiograph 05/25/2023 HISTORY: 73-year-old female M25.561, Right knee pain, swelling and locks up TECHNIQUE: Multiplanar, multisequence imaging of the right knee is performed without IV contrast. FINDINGS: The ACL is intact. LCL complex is intact. There is some intermediate signal within the mid to distal third PCL that could represent a mild spra in or partial tear. There is prominent edema on either side of the otherwise intact MCL. There is a posterior root tear of the medial meniscus with mild extrusion of the meniscal body. Compl ex multidirectional tear extends throughout the posterior horn and body of the medial meniscus. Moderate irregular cartilage thinning throughout the medial compartment with marginal spurring. The lateral meniscus is intact. Overall lateral compartment articular cartilage volume is maintained. There is moderate to severe cartilage loss along the medial patellar facet. Remaining there are of th e patellofemoral compartment articular cartilage is largely maintained. Extensor mechanism is intact. Moderate to large joint effusion. There is a multilocular ganglion cyst measuring 2.0 cm at the origin of the lateral head gastrocnemiu s. Mild to moderate fusion along the pes anserinus bursa. No sizable Broderick's cyst is seen. Some deep soft tissue edema likely corresponds to some extravasated joint fluid. Normal popliteal artery anatomy. Mild generalized muscle volume loss. No suspicious bone marrow repla cement. IMPRESSION: 1. Through thickness posterior root tear of the medial meniscus with mild extrusion of the meniscal b alejandro. Complex multidirectional tear extends throughout the posterior horn and body of the medial menis cus. Moderate overall medial compartmental OA. 2. Grade 1 MCL sprain. Suspect a grade 1 PCL sprain as well. 3. Mild to moderate pes anserinus bursitis, moderate to large knee joint effusion, and a 2.0 cm incid ental ganglion cyst at the origin of the lateral head gastrocnemius. 4. There is moderate to severe cartilage loss along the medial patellar facet. Remaining patellofemor al compartment articular cartilage is largely maintained.
== END | disposition home or self-care (01) ==
LOC: RADMRIMAIN 10:39
PROVIDERS: ATTEND Orthopaedic Surgery
DX: M17.11 Unilateral primary osteoarthritis, right knee (principal); M67.461 Ganglion, right knee; S83.411A Sprain of medial collateral ligament of right knee, initial encounter; S83.31XA Tear of articular cartilage of right knee, current, initial encounter; X58.XXXA Exposure to other specified factors, initial encounter

== ENCOUNTER → 2023-06-13 | Outpatient (CLI) | payer MEDICARE ==
[2023-06-13 21:26] LABS: Basophils # (A) 0.05 X 10*3/uL (0.00-0.10); Basophils % (A) 0.9 %; Eosinophils # (A) 0.17 X 10*3/uL (0.04-0.35); Eosinophils % (A) 3.2 %; HCT 38.2 % (37.2-46.3); HGB 11.8 d/dL (12.0-15.0); Lymphocytes # (A) 1.71 X 10*3/uL (0.90-5.00); Lymphocytes % (A) 31.9 %; MCH 28.2 pg (27.0-32.0); MCHC 30.9 d/dL (32.0-37.0); MCV 91.2 FL (80.0-97.0); Mean Platelet Volume 9.9 FL (9.5-12.2); Monocytes # (A) 0.47 X 10*3/uL (0.20-1.00); Monocytes % (A) 8.8 %; NRBC Per 100 WBC 0 X 10*3/uL (0.00-0.01); Neutrophils # (A) 2.95 X 10*3/uL (1.80-7.70); Platelet Count 331 X 10*3/uL (140-440); RBC 4.19 X 10*6/uL (4.10-5.20); WBC 5.36 X 10*3/uL (4.50-10.00)
[2023-06-13 22:26] LABS: Anion Gap 11.2 mmol/L (4.00-12.00); Carbon Dioxide 23.8 mmol/L (21.6-31.8); Potassium 4.5 mmol/L (3.5-5.5)
== END | disposition home or self-care (01) ==
LOC: LABWHC1 14:00
PROVIDERS: ATTEND Orthopaedic Surgery
DX: Z01.818 Encounter for other preprocedural examination (principal); M23.91 Unspecified internal derangement of right knee
CPT/HCPCS: 36415; 80051; 85025; 93005

== ENCOUNTER → 2024-01-24 | Outpatient (CLI) | payer MEDICARE ==
[2024-01-24 08:47] VITALS: BP 97/66; PULSE 84; RESP 17; TEMP 98.3
--- NOTE | 2024-01-24 08:52 | P.HPOB ---
History of Present Illness H&P Date: 01/24/24 Chief Complaint: The patient is here for her routine gynecologic exam and ma mmogram. This is a 73-year-old -0-2-3 with an LMP of 2001. She is status post DEVON/BSO for benign reasons. She states she has done well with the vaginal estrogen tablets which she has been using because of frequent UTIs and she states this continues to help. She is without gynecologic complaints. Review of Systems The patient has lost 35 pounds over the last year. She has been on Mounjaro for weight loss and she has done well with this. She denies respiratory, cardiac, or G.I. problems. Past Medical History Past Medical History: Cancer, Hearing Disorder / Deafness, Hyperlipidemia, Osteoarthritis (OA), Skin Disorder Additional Past Medical History / Comment(s): Chronic back pain occ. Squamous cell skin cancer chest wall. Hearing aids. Osteopenia. 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 History of Any Multi-Drug Resistant Organisms: None Reported Past Surgical History: Adenoidectomy, Cholecystectomy, Hysterectomy, Tonsillectomy Additional Past Surgical History / Comment(s): DEVON/BSO 2001. Sev eye surgeries, for cataracts and hooding. Right knee meniscus surgery. Colonoscopy 2021(next after 5yr). Past Anesthesia/Blood Transfusion Reactions: No Reported Reaction Past Psychological History: No Psychological Hx Reported Additional Psychological History / Comment(s): CLAUSTROPHOBIC, ANXIOUS ABOUT SOMETHING ON HER FACE. Smoking Status: Former smoker Past Alcohol Use History: Occasional (0-3 drinks per week.) Additional Past Alcohol Use History / Comment(s): Smoked few years in college, quit 1975 Past Drug Use History: None Reported Additional History: She has been since 1973 and is sexually active. 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 - Past Family History Mother Family Medical History: CVA/TIA Father Family Medical History: Diabetes Mellitus Medications and Allergies Home Medications Medication Instructions Recorded Confirmed Type FLUoxetine HCL [PROzac] 40 mg PO HS 10/15/21 06/16/23 History Rosuvastatin Calcium [Crestor] 10 mg PO HS 10/15/21 06/16/23 History estradioL [Yuvafem] 10 mcg VG DIRECTED #24 tab 01/18/23 06/16/23 Rx Calcium Carbonate [Calcium] 600 mg PO DAILY 01/24/24 01/24/24 History Tirzepatide [Mounjaro] 10 mg INJ WEEKLY 01/24/24 01/24/24 History Allergies Allergy/AdvReac Type Severity Reaction Status Date / Time erythromycin base Allergy Unknown Verified 01/24/24 08:13 [Erythromycin Base] Childhood Penicillins Allergy Rash/Hives Verified 01/24/24 08:13 sulfamethoxazole Allergy Unknown Verified 01/24/24 08:13 [From Bactrim] Childhood Tetracyclines Allergy Unknown Verified 01/24/24 08:13 Childhood trimethoprim [From Bactrim] Allergy Unknown Verified 01/24/24 08:13 Childhood Exam Vital Signs Temp Pulse Resp BP Pulse Ox 01/24/24 08:15 98.3 F 84 17 97/66 97 Intake and Output 01/23/24 01/24/24 01/24/24 22:59 06:59 14:59 Other: Weight 68.492 kg Height 5 feet 2 inches, weight 151 pounds, BMI 27.6. This is a well-developed well-nourished white female who is alert and oriented times 3 in no acute distress. HEENT: Within normal limits. NECK: Supple without mass or thyromegaly. CHEST AND LUNGS: Clear to auscultation. HEART: Regular rate and rhythm. BREASTS: Are without mass or discharge. AXILLARY EXAM: Negative for adenopathy. BACK: Negative for CVA tenderness. ABDOMEN: Soft, nontender, without palpable masses. PELVIC EXAM: External genitalia appears normal with mild atrophy. Vagina appears normal with mild atrophy. There is no evidence of prolapse. Bimanual examination is negative for mass or tenderness. RECTAL EXAM: Rectovaginal exam is negative for mass or tenderness and is negative for occult blood. EXTREMITIES: Nontender. IMPRESSION: 1. 73-year-old menopausal female status post DEVON/BSO for benign reasons, with normal gynecologic exam. 2. You have osteopenia. 3. Doing well on vaginal estrogen which has been used for her history of frequent UTIs in the past. PLAN: 1. Pap smears have been discontinued 2. Self breast awareness was discussed with the patient. We have also discussed symptoms associated with inflammatory breast cancer. 3. Screening mammogram will be done today. 4. Osteoporosis prevention was discussed. I have stressed the importance of adequate calcium, vitamin D and regular exercise. Recommended amounts of calcium and vitamin D were also discussed. We will plan on repeating the bone density test in 1 year. 5. Continue Yuvafem vaginal estrogen tablets 10 mcg into the vagina weekly. Electronic prescription will be sent to [facility] pharmacy at the [facility]. 6. She was advised to return in one year for her annual well woman exam.
--- NOTE | 2024-01-24 16:18 | MM ---
Reason for Exam: Screening (asymptomatic). Last screening mammogram was performed 12 month(s) ago. Patient History: Menarche at age 13. First Full-Term at age 29. Left ovary removed at age 51. Right ovary removed at age 51. Hysterectomy at age 51. Postmenopausal. Patient has history of breast feeding. Currently using Estrogen, starting at age 69. Patient used Hormonal Contraceptives for 1 year. Risk Values: Julissa 5 year model risk: 2.0%. NCI Lifetime model risk: 4.8%. Prior Study Comparison: 01/20/2017 Bilateral Screening Mammogram, [facility]. 04/06/2018 Bilateral Screening Mammogram, [facility]. 05/14/2019 Bilateral Screening Mammogram, [facility]. 05/17/2019 Left Diagnostic Mammogram, [facility]. 12/13/2019 Left Diagnostic Mammogram, [facility]. 09/29/2020 Bilateral Screening Mammogram, [facility]. 12/07/2021 Bilateral Screening Mammogram, [facility]. 01/18/2023 Bilateral MG 3D screening mammo w/cad, [facility]. Tissue Density: The breasts are heterogeneously dense, which may obscure small masses. Findings: Analyzed By CAD. The pattern is symmetrical. No suspicious groups of microcalcifications, spiculated or lobular masses, architectural distortion or other secondary signs of malignancy are mammographically apparent. Overall Assessment: Benign, BI-RAD 2 Management: Screening Mammogram of both breasts in 1 year. A negative mammogram report should not preclude additional follow up of suspicious palpable abnormalities. Patient should continue monthly self breast exam. A clinical breast exam by your physician is recommended on an annual basis and results should be correlated with mammographic findings. Note on Julissa scores and lifetime risk: 1. A Julissa score greater than 3% is considered moderate risk. If this is the case, consider specialist referral to assess eligibility for a risk reducing agent. 2. If overall lifetime risk for the development of breast cancer is 20% or higher, the patient may qualify for future screening with alternating mammogram and breast MRI. Electronically signed and approved by: Marcos Escudero D.O. Radiologis [facility]
== END ==
LOC: WWCWWP 07:58
PROVIDERS: ATTEND Obstetrics & Gynecology
DX: Z12.31 Encounter for screening mammogram for malignant neoplasm of breast (principal); M85.80 Other specified disorders of bone density and structure, unspecified site; N39.0 Urinary tract infection, site not specified; Z78.0 Asymptomatic menopausal state; Z88.1 Allergy status to other antibiotic agents; Z88.0 Allergy status to penicillin; Z88.2 Allergy status to sulfonamides; Z91.048 Other nonmedicinal substance allergy status; Z87.891 Personal history of nicotine dependence
CPT/HCPCS: 77063; 77067

== ENCOUNTER → 2025-02-05 | Outpatient (CLI) | payer MEDICARE, OTHER ==
[2025-02-05 08:27] VITALS: PULSE 65; RESP 16
--- NOTE | 2025-02-05 08:54 | P.HPOB ---
History of Present Illness H&P Date: 02/05/25 Chief Complaint: The patient is here for her routine gynecologic exam and ma mmogram. This is a 74-year-old -0-2-3 with an LMP of 2001. She is status post DEVON/BSO for benign reasons. She states she is doing well with vaginal estrogen tablets which has been helpful at decreasing the frequency of UTIs. She is without gynecologic complaints. Review of Systems The patient has lost 5 pounds over the last year. She would like to continue to lose weight. She is currently on Zepbound to help with her weight loss. She denies respiratory, cardiac, or G.I. problems. Past Medical History Past Medical History: Cancer, Hearing Disorder / Deafness, Hyperlipidemia, Osteoarthritis (OA), Skin Disorder Additional Past Medical History / Comment(s): Chronic back pain occ. Squamous cell skin cancer chest wall. Hearing aids. 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 History of Any Multi-Drug Resistant Organisms: None Reported Past Surgical History: Adenoidectomy, Cholecystectomy, Hysterectomy, Tonsillectomy Additional Past Surgical History / Comment(s): DEVON/BSO 2001. Sev eye surgeries, for cataracts and hooding. Right knee meniscus surgery. Colonoscopy 2021(next after 5yr). Past Anesthesia/Blood Transfusion Reactions: No Reported Reaction Past Psychological History: No Psychological Hx Reported Additional Psychological History / Comment(s): CLAUSTROPHOBIC, ANXIOUS ABOUT SOMETHING ON HER FACE. Smoking Status: Former smoker Past Alcohol Use History: Occasional (0-3 drinks per week.) Additional Past Alcohol Use History / Comment(s): Smoked few years in college, quit 1975 Past Drug Use History: None Reported Additional History: She has been since 1973 and is infrequently sexually active. 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 - Past Family History Mother Family Medical History: CVA/TIA Father Family Medical History: Diabetes Mellitus Medications and Allergies Home Medications Medication Instructions Recorded Confirmed Type FLUoxetine HCL [PROzac] 40 mg PO HS 10/15/21 02/05/25 History Rosuvastatin Calcium [Crestor] 10 mg PO HS 10/15/21 02/05/25 History Calcium Carbonate [Calcium] 600 mg PO DAILY 01/24/24 02/05/25 History estradioL [Yuvafem] 10 mcg VG WEEKLY #12 tab 01/24/24 02/05/25 Rx Tirzepatide [Zepbound] 7.5 mg IM WEEKLY 02/05/25 02/05/25 History Allergies Allergy/AdvReac Type Severity Reaction Status Date / Time erythromycin base Allergy Unknown Verified 02/05/25 08:14 [Erythromycin Base] Childhood Penicillins Allergy Rash/Hives Verified 02/05/25 08:14 sulfamethoxazole Allergy Unknown Verified 02/05/25 08:14 [From Bactrim] Childhood Tetracyclines Allergy Unknown Verified 02/05/25 08:14 Childhood trimethoprim [From Bactrim] Allergy Unknown Verified 02/05/25 08:14 Childhood Exam Vital Signs Pulse Resp 02/05/25 08:22 65 16 Intake and Output 02/04/25 02/05/25 02/05/25 22:59 06:59 14:59 Other: Weight 66.224 kg Blood pressure 92/61, height 5 feet 2-1/2 inches, weight 146 pounds, BMI 26.7, temperature 98.1, pulse 65, pulse oximeter 98%. This is a well-developed well-nourished white female who is alert and oriented times 3 in no acute distress. HEENT: Within normal limits. NECK: Supple without mass or thyromegaly. CHEST AND LUNGS: Clear to auscultation. HEART: Regular rate and rhythm. BREASTS: Are without mass or discharge. AXILLARY EXAM: Negative for adenopathy. BACK: Negative for CVA tenderness. ABDOMEN: Soft, nontender, without palpable masses. PELVIC EXAM: External genitalia appears normal with mild to moderate atrophy. Vagina appears normal with mild atrophy. There is no evidence of prolapse. Bimanual examination is negative for mass or tenderness. RECTAL EXAM: Rectovaginal exam is negative for mass or tenderness and is negative for occult blood. EXTREMITIES: Nontender. IMPRESSION: 1. 74-year-old menopausal female status post DEVON/BSO for benign reasons, with normal gynecologic exam. 2. Doing well using vaginal estrogen tablets which have helped decrease the frequency of urinary tract infections. 3. History of osteopenia. PLAN: 1. Pap smears have been discontinued. 2. Self breast awareness was discussed with the patient. We have also discussed symptoms associated with inflammatory breast cancer. 3. Screening mammogram will be done today. 4. Osteoporosis prevention was discussed. I have stressed the importance of adequate calcium, vitamin D and regular exercise. Recommended amounts of calcium and vitamin D were also discussed. Bone density test will be done today. 5. Continue vaginal estrogen. The electronic prescription for Yuvafem 10 mcg into the vagina 2 times weekly will be sent to the [facility] pharmacy in [place]. 6. The patient was advised to return in 1-2 years for her well woman examination.
--- NOTE | 2025-02-05 10:45 | MM ---
Reason for Exam: Screening (asymptomatic). Last mammogram was performed 1 year(s) and 1 month(s) ago. Patient History: Menarche at age 13. First Full-Term at age 29. Left ovary removed at age 51. Right ovary removed at age 51. Hysterectomy at age 51. Postmenopausal. Patient has history of breast feeding. Currently using Estrogen, starting at age 64. Patient used Hormonal Contraceptives for 1 year. Paternal grandmother had other cancer. Maternal grandmother had other cancer. Risk Values: Julissa 5 year model risk: 2.0%. NCI Lifetime model risk: 4.5%. Prior Study Comparison: 12/07/2021 Bilateral Screening Mammogram, [facility]. 01/18/2023 Bilateral MG 3D screening mammo w/cad, [facility]. 01/24/2024 Bilateral MG 3D screening mammo w/cad, [facility]. Tissue Density: The breasts are heterogeneously dense, which may obscure small masses. Findings: Analyzed By CAD. There are a few tiny benign-appearing round calcifications scattered throughout the bilateral breasts redemonstrated. There is no suspicious group of microcalcifications or new suspicious mass in either breast. Overall Assessment: Benign, BI-RAD 2 Management: Screening Mammogram of both breasts in 1 year. . Patient should continue monthly self-breast exams. A clinical breast exam by your physician is recommended on an annual basis. This exam should not preclude additional follow-up of suspicious palpable abnormalities. Note on Julissa scores and lifetime risk: 1. A Julissa score greater than 3% is considered moderate risk. If this is the case, consider specialist referral to assess eligibility for a risk reducing agent. 2. If overall lifetime risk for the development of breast cancer is 20% or higher, the patient may qualify for future screening with alternating mammogram and breast MRI. [facility], , 02/05/2025 10:41 AM. Electronically signed and approved by: Joce Duran M.D.
--- NOTE | 2025-02-05 10:56 | BD ---
EXAMINATION TYPE: Axial Bone Density DATE OF EXAM: 02/05/2025 CLINICAL HISTORY: 74 years old Female. ICD-10 CODE: Z780 POST MENA , Additional History: Height: 61.25 Weight: 144 FRAX RISK QUESTIONS: Family History (Parent hip fracture): yes History of Fracture in Adulthood: yes Secondary Osteoporosis: no RISK FACTORS HISTORY OF: Surgery to Spine/Hip(right/left)/Wrist (right/left): no MEDICATIONS: Thyroid Medications: no Osteoporosis Medications: no EXAM MEASUREMENTS: Bone mineral densitometry was performed using the ZUCHEM System. Bone mineral density as measured about the Lumbar spine is: ----- L1-L4(G/cm2): 1.012 T Score Values are as follows: ----- L1: -1.8 ----- L2: -3.1 ----- L3: -2.7 ----- L4: 1.4 ----- L1-L4: -1.4 Z Score Values are as follows: ----- L1: -0.1 ----- L2: -1.3 ----- L3: -1.0 ----- L4: 3.1 ----- L1-L4: 0.3 Bone mineral density has: Decreased -6.8% since study of: 01/18/2023 Bone mineral density about the R hip (g/cm2): 0.839 Bone mineral density about the L hip (g/cm2): 0.791 T Score values are as follows: -----R Neck: -1.9 -----L Neck: -1.8 -----R Total: -1.3 -----L Total: -1.7 Z Score values are as follows: -----R Neck: 0.0 -----L Neck: 0.1 -----R Total: 0.4 -----L Total: 0.0 Bone mineral density has: Decreased -7.0% since study of: 01/18/2023 FRAX%s: The graph provided illustrates a 31.1% chance for a major osteoporotic fx and a 16.9% chance for the hips probability for fx in 10 years time. IMPRESSION: Osteopenia (T Score between -2.5 and -1) remains present. There is slightly increased risk of fracture and the patient may be considered for treatment. Re-Screen 2-5 years. NOTE: T-SCORE=SD OF THE YOUNG ADULT MEAN. [facility], , 02/05/2025 10:54 AM
--- NOTE | 2025-02-05 11:47 | P.PN ---
Progress Note - Text Progress Note Date: 02/05/25 OUTPATIENT FOLLOW-UP NOTE TEST(S)/RESULTS: Test results from 02/05/2025 include benign mammogram and bone density test read as osteopenia. There were measurements in the osteoporosis range in L2 and L3. METHOD OF NOTIFICATION: The patient was notified by phone on 02/05/2025. PATIENT COMMENTS: DIAGNOSIS: Benign mammogram and focal osteoporosis. DISCUSSION: We have discussed how the bone density test was read as osteopenia, however, because there were measurements in the osteoporosis range and there was a decrease in both the hip and her spine measurements, I am recommending treatment. We have discussed how medications such as alendronate can increase the strength of the bones. We have discussed pros and cons. We have discussed the possible increased risk for esophageal ulceration as well as ways to minimize this risk. We have discussed how the medication should be taken. We have also discussed the risk for osteonecrosis of the jaw. She should probably not take the medication or be off for certain length of time if she has upcoming jaw or extensive dental surgery. Information on osteoporosis and alendronate will be mailed to the patient. She had a normal creatinine and normal serum calcium level with her routine blood work done on 01/21/2025. She states she will review the information and make a decision about the medication after her upcoming [place] trip. PLAN: As above.
== END ==
LOC: WWCWWP 07:56
PROVIDERS: ATTEND Obstetrics & Gynecology
DX: Z01.419 Encounter for gynecological examination (general) (routine) without abnormal findings (principal); Z12.31 Encounter for screening mammogram for malignant neoplasm of breast; M81.0 Age-related osteoporosis without current pathological fracture; Z78.0 Asymptomatic menopausal state; Z86.39 Personal history of other endocrine, nutritional and metabolic disease; Z90.710 Acquired absence of both cervix and uterus; Z90.721 Acquired absence of ovaries, unilateral; Z90.722 Acquired absence of ovaries, bilateral; Z87.891 Personal history of nicotine dependence; Z88.0 Allergy status to penicillin; Z88.1 Allergy status to other antibiotic agents; Z88.2 Allergy status to sulfonamides; Z88.8 Allergy status to other drugs, medicaments and biological substances
CPT/HCPCS: 77063; 77067; 77080